=== PATIENT | male | born 1965 | race Caucasian/White ===

== ENCOUNTER 2025-04-25 01:05 | Day surgery (SDC) | payer OTHER, SELFPAY ==
--- NOTE | 2025-04-18 10:23 | SUR.PREOP ---
[facility] has started construction of its new state of the art ER which will open Spring 2026. With this, we anticipate parking may be a challenge for some our surgical patients and families. Parking spaces are limited but are available for all Surgical, obstetrics, and ER patients sharing this lot. If you arrive and find you are having a hard time finding a parking space, please note that we understand the challenges, please drive around the hospital and park near Hospital Entrance 1. When you enter this entrance, you can ask a volunteer to direct or take you back to the surgical waiting area to check in. We appreciate everyone?s understanding of these expected challenges while we build for your future. Report to the Outpatient Waiting Room, entrance under the green pavilion located off [address], at time _12PM___ on date __04/25/25___. Planned Procedure Time: __2PM__.? Time changes happen often and if your time is changed the preop area will call you the afternoon before. - You and your visitor will be asked to self-screen and do not enter if you have any COVID symptoms. Please call surgeon if you need to reschedule. - A mask is optional within the hospital at this time. Patients may have clear liquids (water, carbonated beverages, clear teas, apple juice) until 3 hours prior to surgery with a maximum of 20 ounces. - No food from midnight until time of surgery and no smoking, or chewing tobacco (or any form of nicotine). No chewing gum, candy or mints. Take only the following medications with a SIP of water on the morning of surgery: _carvedilol, (vicodin if needed) DO NOT STOP ANY OF YOUR OTHER PRESCRIPTION MEDICATIONS PRIOR TO SURGERY EXCEPT THE FOLLOWING Hold all vitamins and supplements for 3 days per anesthesiologist. Medications to discontinue per physician:___Advised to follow up with surgeon regarding Plavix and ASA d/t heart history. Date to take last dose:_follow Dr. Sparks's instructions..____ Please no make-up, nail khmer, hairspray, perfume, deodorant, or body powder the day of surgery.? No jewelry (including any body piercings) or valuables the day of surgery, leave them at home.? Please take a shower or bath the night before, or the morning of, surgery with an antibacterial soap.? Wear comfortable, loose fitting clothing.? - Jewelry must be removed prior to entering the operating room.? Rings and piercings that are not removed may be cut off. - The hospital will not accept responsibility for valuables.? - Please leave all valuables, including medications, at home the day of surgery. If you are going home after surgery, a licensed m48/m60 tank driver must drive you home.? - NO public transportation without another adult if you receive anesthesia. - We recommend that an adult stay with you for 24 hours following discharge. - We also recommend that you do not drive, make important decision, drink alcoholic beverages, or take any drugs that were not prescribed by your health care provider for at least 24 hours after your discharge time.. Follow any additional instructions given to you from your surgeon. Telephone instructions given to __Kim/wife___and asked if any additional questions and then verbalized understanding. Patient advised to call surgeon office or pre surgery nurse liaison [phone] if any additional questions.
[2025-04-18 10:38] VITALS: BMI 39.5
[2025-04-25] VITALS (7 sets, daily range): BP systolic 118–155; BP diastolic 62–106; PULSE 60–74; RESP 10–18; TEMP 36.1–36.2; O2SAT 94–100; BMI 39.8
--- OUTSIDE RECORDS SUMMARY | 2025-04-25 01:10 | XMS_ITS | Encounter Summary ---
Author Organization [facility] Healthcare Address [address] [place] [address] Care Team Providers Care Melter Assistant Name Role Phone Ovidio Westfall MD Primary Care Provider [phone] Encounter Details Date Type Department Care Team (Late st Contact Info) Description 10/01/2024 [facility] Post Discharge Follow up phone call [address] [address] [place] Social History Tobacco Use Types Packs/Day Years Used Date Smoking Tobacco: Every Day AUDIT-C Answer Date Recorded Q1: How often do you have a drink containing alcohol? Never 09/24/2024 Q2: How many drinks containi ng alcohol do you have on a typical day when you are drinking? Patient does not drink Q3: How often do you have si x or more drinks on one occasion? Never 09/24/2024 Personal Safety Answer Date Recorded Have you ever been in or are you currently in a harmful physical or emotional relationship or is someone making you feel afraid or unsafe? Denies 09/24/2024 Sex and Gender Information Value Date Recorded Sex Assigned at Not on file Legal Sex Male 10:14 AM DANCE CHOREOGRAPHER Gender Identity Not on file Sexual Orientation Not on file documented as of this encounter Plan of Treatment Not on file documented as of this encounter Visit Diagnoses Not on filedocumented in this encounter Care Teams Melter Assistant Relationship Specialty Start Date [place] [id number] [place] [address] [address] [place] [address] PCP - General Internal Medicine 09/23/24 documented as of this encounter
--- OUTSIDE RECORDS SUMMARY | 2025-04-25 01:10 | XMS_ITS | Clinical Summary ---
Author Organization [facility] Address [address] [place] [address] Care Team Providers Care Gas Appliance Servicer Name Role Phone Ovidio Westfall MD Primary Care Provider [phone] Source Comments [facility],non-owned Affiliates and Associated Physician Practices is amultiple site organization consisting of ambulatory clinics and hospital sitesin [place], [place], [place] and [place]. This disclosure is being madepursuant to the Care Everywhere program and may not contain all information available regarding this patient. Last updated 18.[facility] Live Shuttle Allergies Active Allergy Reactions Criticality Noted Date Comments Adhesive Sensitivity Urticaria Medium 09/23/2024 Contrast-Iodinated Agents For Ct/Other Rash Medium 10/03/2024 Medications * Be aware that medications may not be up to date on this document. Alwaysverify current medications with the patient. aspirin EC (Ecotrin) 81 MG tablet Take 1 (one) tablet by mouth once daily Active atorvastatin (Lipitor) 40 MG tablet Take 1 (one) tablet by mouth once daily 09/26/2024 Active carvedilol (Coreg) 12.5 MG tablet Take 1 (one) tablet by mouth 2 times daily 10/24/2023 Active clopidogrel (plaVIX) 75 MG tablet Take 1 (one) tablet by mouth once daily 09/25/2024 Active fenofibrate (Tricor) 145 MG tablet Take 1 (one) tablet by mouth once daily 09/26/2024 Active HYDROcodone-acet aminophen ([place]) 10-325 MG tablet Take 1 (one) tablet by mouth every 6 hours as needed 09/04/2024 Active lisinopril (Prinivil; Zestril) 10 MG tablet Take 1 (one) tablet by mouth once daily 09/23/2024 Active spironolactone (Aldactone) 25 MG tablet Take 1 (one) tablet by mouth once daily 10/24/2023 Active testosterone cypionate (Depo-Testostero ne) 100 MG/ML injection Inject 100 (one hundred) mg into muscle every 14 days Active Active Problems Problem Noted Date Diagnosed Date Knee pain, left 10/21/2024 Carotid stenosis, left 10/10/2024 Angina at rest 09/24/2024 Hypertensive disorder 09/29/2016 Smoker 04/08/2015 Hyperlipidemia 04/08/2015 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 Coronary arteriosclerosis 04/08/2015 Gastroesophageal reflux disease 04/07/2015 Chronic low back pain 04/07/2015 Carotid artery disease 04/07/2015 CAD in [place] artery 06/05/2014 Social History Tobacco Use Types Packs/Day Years Used Date Smoking Tobacco: Every Day Cigarettes Tobacco Cessation:Ready to Q uit: Not Asked; Counseling Given: Not Answered Alcohol Use Standard Drinks/Week Comments Never 0 (1 standard drink = 0.6 oz pur e alcohol) Overall Financial Resource Strain (CARDIA) Answe r Date Recorded How hard is it for you to pa y for the very basics like food, housing, medical care, and heating? Not hard at all 10/10/2024 [facility] - Occupational Stress Questionnaire Answer Date Recorded Do you feel stress - tense, restless, nervous, or anxious, or unable to sleep at night because your mind is troubled all the time - these days? Not at all 10/10/2024 Hunger Vital Sign Answer Date Recorded Within the past 12 months, y ou worried that your food would run out before you got the money to buy more. Never true 10/11/19 25 Within the past 12 months, t he food you bought just didn't last and you didn't have money to get more. Never true 10/10/2024 PRAPARE - Transportation Answer Date Re corded In the past 12 months, has l ack of transportation kept you from medical appointments or from getting medications? No 09/24 In the past 12 months, has l ack of transportation kept you from meetings, work, or from getting things needed for daily living? No 10/10/2024 Housing Stability Vital Sign Answer [place] e Recorded In the last 12 months, was t here a time when you were not able to pay the mortgage or rent on time? No 10/10/2024 Number of Times Moved in the Last Year Not on fi le 10/10/2024 At any time in the past 12 m [facility], were you homeless or living in a care home (including now)? No 10/10/2024 Sex and Gender Information Value Date Recorded Sex Assigned at Not on file Legal Sex Male 3:10 PM CDT Gender Identity Not on file Sexual Orientation Not on file Last Filed Vital Signs Vital Sign Reading Time Taken Comments Blood Pressure 119/81 10/21/2024 12:20 PM CDT Pulse 61 10/21/2024 12:20 PM CDT Temperature 36.5 C (97.7 F) 10/11/2024 11:03 AM CDT Respiratory Rate 13 10/21/2024 12:20 PM CDT Oxygen Saturation 98% 10/21/2024 12:20 PM CDT Inhaled Oxygen Concentration - - Weight 98.9 kg (218 lb) 10/21/2024 12:12 PM CDT Height 172.7 cm (5' 8) 10/21/2024 12:12 PM CDT Body Mass Index 33.15 10/21/2024 12:12 PM CDT Plan of Treatment Health Maintenance Due Date Last Done Comments COLOGUARD (AGES 45-75) - COL ON CA SCREENING 1967 COLON MONITORING 1967 COLONOSCOPY - COLON CA SCREENING 1967 CT COLONOGRAPHY - COLON CA SCREENING 1967 Colorectal Cancer Screening 1967 FIT - COLON CA SCREENING 1967 FLEX SIG - COLON CA SCREENING 1967 HIV SCREENING 1982 HEPATITIS C SCREENING 05/07/1985 DTAP/TDAP/TD VACCINES (1 - Tdap) 1986 HEPATITIS B VACCINE (1 of 3 - 19+ 3-dose series) 1986 PNEUMOCOCCAL VACCINE 50+ (1 of 2 - PCV) 1986 ZOSTER VACCINE (1 of 2) 2017 DEPRESSION SCREENING 06/26/2024 SCREENING FOR DIABETES 10/03/2024 COVID-19 VACCINE (2023-2 5 season) 2025 INFLUENZA VACCINE (#1) 2025 HIB VACCINE Aged Out No longer eligi ble based on patient's age to complete this topic HPV VACCINE Aged Out No longer eligi ble based on patient's age to complete this topic MENINGOCOCCAL (Group B) VACC INE SHARED DECISION-MAKING Aged Out No longer eligibl e based on patient's age to complete this topic MENINGOCOCCAL GROUPS A/C/Y/W VACCINE Aged Out No longer eligible b ased on patient's age to complete this topic Medical Devices Implanted Type Area Child Protective Services Social Worker Device Identifier Shelf Expiration Date Model / Serial / Lot Stent Eprsth Crtd 21mm 8mm Mtl Wlstnt- [id number] Implanted:Qty : 1 on 10/10/2024 by Belen Kahn MD Left: Carotid [employer] [id number] 11/04/2027 [id number] / / [id number] Insurance [employer] Care Teams Gas Appliance Servicer Relationship Specialty [place] [address] [address] [facility] [place] [id number] PCP - General Internal Medicine 10/03/24
--- OUTSIDE RECORDS SUMMARY | 2025-04-25 01:10 | XMS_ITS | Clinical Summary ---
Author Organization [facility] Address [address] [place] [address] Care Team Providers Care Reptile Keeper Name Role Phone Ovidio Westfall MD Primary Care Provider [phone] Allergies Active Allergy Reactions Criticality Noted Date Comments Adhesive Hives Medium 09/23/2024 Iodinated Contrast Media Hives Medium Medications spironolactone (ALDACTONE) 25 mg tablet Take 1 tablet (25 mg total) by mouth daily Active carvedilol (COREG) 12.5 mg tablet Take 1 tablet (12.5 mg total) by mouth 2 (two) times a day with meals Active clopidogrel (PLAVIX) 75 mg tablet Take 1 tablet (75 mg total) by mouth daily Active aspirin 81 mg tablet Take 1 tablet (81 mg total) by mouth daily Active testosterone cypionate (DEPO-TESTOTERONE) 100 mg/mL injection Inject into the muscle as instructed every 14 (fourteen) days. Active lisinopriL (PRINIVIL,ZESTRIL) 10 mg tablet Take 1 tablet (10 mg total) by mouth daily 90 tablet 3 09/24/19 25 026 Active amLODIPine (NORVASC) 5 mg tablet Take 1 tablet (5 mg total) by mouth daily 90 tablet 3 09/24/19 25 026 Active atorvastatin (LIPITOR) 40 mg tablet Take 1 tablet (40 mg total) by mouth daily 09/27/19 25 Active HYDROcodone-acetamin ophen (NORCO) 10-325 mg per tabletIndications:Pa in Take 1 tablet by mouth every 6 (six) hours as needed for pain 09/27/19 25 Active fenofibrate nanocrystallized (TRICOR) 145 mg tablet Take 1 tablet (145 mg total) by mouth daily 09/27/19 25 026 Active Active Problems Problem Noted Date Diagnosed Date Coronary arteriosclerosis in [place] artery 11/08 S/P CABG (coronary artery bypass graft) 11/09/19 25 Angina at rest 09/24/2024 Carotid artery disease 09/19/2024 Primary hypertension 04/28/2023 CAD in [place] artery 06/05/2014 Resolved Problems Problem Noted Date Diagnosed Date Resolved Date S/P CABG (coronary artery bypass graft) 04/30/2021 09/25/2024 Status post coronary artery stent placement 04/30/2021 09/25/2024 Post percutaneous translumin al coronary angioplasty 01/07/2014 09/25/2024 Overview (09/29/2016): STATUS-POST PTCA Tobacco dependence syndrome 11/09/2013 09/25/2024 Overview (09/28/2016): TOBACCO USE DISORDER Hyperlipidemia 11/09/2013 09/25/2024 Overview (09/29/2016): HYPERLIPIDEMIA NEC/NOS Coronary arteriosclerosis in [place] artery 11/09/2013 09/25/2024 Overview (09/30/2016): CRNRY ATHRSCL NATVE VSSL Surgical History Surgery Date Site/Laterality Comments CARDIAC CATHETERIZATION 09/25/2024 N/A Procedure: SELECTIVE CATH INTERNAL CAROTID ARTERY, UNILATERAL [id number]; Surgeon: Aly Aguilera MD; Location: CARDIAC MANAGER OF CLINICAL; Service: Cardiovascular; Laterality: N/A; Medical devices from this surgery are in the Medical Devices section. CARDIAC CATHETERIZATION 09/25/2024 N/A Procedure: LEFT HEART CATHETERIZATION WITH CORONARY ANGIOGRAPHY AND WITH OR WITHOUT LEFT VENTRICULOGRAM [id number]; Surgeon: Aly Aguilera MD; Location: CARDIAC MANAGER OF CLINICAL; Service: Cardiovascular; Laterality: N/A; Medical devices from this surgery are in the Medical Devices section. Medical History Medical History Date Comments GERD (gastroesophageal reflux disease) Dysphagia occasional solid s liquids and pills Sleep apnea Hypertension Family History Medical History Relation Name Comments Coronary artery disease Father Fami ly history of coronary artery disease - (Added by TW Conv) Relation Name Status Comments Father Social History Tobacco Use Types Packs/Day Years Used Date Smoking Tobacco: Every Day Tobacco Cessation:Ready to Q uit: Not Asked; Counseling Given: Not Answered AUDIT-C Answer Date Recorded Q1: How often [...] on file Legal Sex Male 10:14 AM DIFFERENTIAL SPECIALIST Gender Identity Not on file Sexual Orientation Not on file Obstetrics History Last Filed Vital Signs Vital Sign Reading Time Taken Comments Blood Pressure 136/86 11/08/2024 9:31 AM CDT Pulse 67 11/08/2024 9:31 AM CDT Temperature 36.4 C (97.6 F) 09/26/2024 11:04 AM CDT Respiratory Rate 16 11/08/2024 9:31 AM CDT Oxygen Saturation 92% 11/08/2024 9:31 AM CDT Inhaled Oxygen Concentration - - Weight 103.4 kg (228 lb) 11/08/2024 9:31 AM CDT Height 172.7 cm (5' 7.99) 09/24/2024 10:35 PM C DT Body Mass Index 34.68 09/24/2024 10:35 PM CDT Plan of Treatment Health Maintenance Due Date Last Done Comments Colon Cancer Screening-Colonoscopy 1967 Depression Screening 1967 Hepatitis C Screening 1967 Hepatitis B Screening 1985 Regular Well Visit/Exam 18-64 1985 Pneumococcal vaccine <65 (1 of 2 - PCV) 1986 Zoster Vaccine (1 of 2) 2017 Prostate Cancer Screening-PSA 08/04/2024, 01/12/2022, 04/26/2021 Influenza Vaccine (#1) 2025 9, 04/20/2018, 04/18/2018, Additional history exists DTaP/Tdap/Td Vaccine (2 - Td or Tdap) 04/02/2029 04/02/2019 Medical Devices Implanted Type Area Investor Relations Director Device Identifier Shelf Expiration Date Model / Serial / Lot ISpeak Synergy Xd Monorail 3mm 12mm 144cm Delivery System 1 Access Port [id number] - [id number] Implanted:Qty: 1 on 09/25/2024 by Aly Aguilera MD [facility] [employer] 02/26/2026 [id number] / / [id number] [facility] Angio-Seal Vip 6fr Closere Device [id number] - [id number] Implanted:Qty: 1 on 09/25/2024 by Aly Aguilera MD at [facility] [employer] 03/05/2025 [id number] / / Procedures Procedure Name Priority Date/Time Associated Diagnosis Comments PSA DIAGNOSTIC Routine 08/04/2022 11:53 AM DIFFERENTIAL SPECIALIST from Last 3 Months or Most Recently Relevant to Health Maintenance Results * PSA diagnostic (08/04/2022 11:53 AM DIFFERENTIAL SPECIALIST) PSA-Total 0.49 <=3.90 ng/mL [facility] Blood 08/04/2022 11:5 3 AM DIFFERENTIAL SPECIALIST 08/04/2022 1:06 PM DIFFERENTIAL SPECIALIST us Esteban Pratt MD LAB BLOOD ORDERABLES Final Resul t [facility] Department [place] [address] from Last 3 Months or Most Recently Relevant to Health Maintenance Insurance [employer] Advance Directives For more information, please contact: [phone] * Full Code (Latest Code Status on File) Date Activated Date Inactivated Comments 09/25/2024 7:20 AM 09/26/2024 6:22 PM * Full Code Date Activated Date Inactivated Comments 09/24/2024 8:19 PM 09/25/2024 7:20 AM * Full Code Date Activated Date Inactivated Comments 04/10/2018 11:55 AM 04/10/2018 4:12 PM Care Teams Reptile Keeper Relationship Specialty [place] [address] [address] PCP - General Internal Medicine 09/23/24
--- NOTE | 2025-04-25 10:31 | PM.IMHP ---
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 [facility] Family History Family History (Updated 02/20/14 @ 07:13 by DOCTOR UNKNOWN) Mother Family history of chronic obstructive pulmonary disease Family history of emphysema Father Family history of coronary artery disease Sibling Family history of coronary artery disease Social History Social History Smoking packs per day: 2 Smoking cigarettes per day: 40.0 Years smoked: 44 Smoking pack-years: 88.00 Smoking status: Current every day smoker Alcohol intake: current Living arrangements: with family Spiritual care concerns: No Meds Home Medications and Allergies Home Medications ?Medication ?Instructions ?Recorded ?Confirmed ?Type aspirin 81 mg tablet,delayed 81 mg PO DAILY 04/18/25 04/18/25 History release (Adult Aspirin Regimen) atorvastatin 40 mg tablet 40 mg PO HS 04/18/25 04/18/25 History carvedilol 12.5 mg tablet 12.5 mg PO BID 04/18/25 04/18/25 History clopidogrel 75 mg tablet 75 mg PO DAILY 04/18/25 04/18/25 History esomeprazole magnesium 20 mg 40 mg PO DAILY 04/18/25 04/18/25 History capsule,delayed release (Nexium) fenofibrate nanocrystallized 145 145 mg PO DAILY 04/18/25 04/18/25 History mg tablet hydralazine 10 mg tablet 10 mg PO TID PRN hypertension 04/18/25 04/18/25 History hydrocodone 10 mg-acetaminophen 1 tablet PO TID PRN pain 04/18/25 04/18/25 History 325 mg tablet lisinopril 10 mg tablet 10 mg PO DAILY 04/18/25 04/18/25 History lisinopril 5 mg tablet 5 mg PO DAILY 04/18/25 04/18/25 History spironolactone 25 mg tablet 25 mg PO DAILY 04/18/25 04/18/25 History testosterone cypionate 200 mg/mL 100 mg IM WEEKLY 04/18/25 04/18/25 History intramuscular oil Allergies Allergy/AdvReac Type Severity Reaction Status Date / Time Iodinated Contrast Media Allergy Mild Rash Verified 04/18/25 10:29 Exam Narrative: Examination of the patient's right knee shows that he has moderate prepatellar fluid collection as well as significant tenderness to palpation over the medial joint Const: General: cooperative, healthy appearing, comfortable, no acute distress, well developed, alert, awake and Physically active Nutritional Appearance: well nourished Orientation/consciousness: oriented to person, oriented to place and oriented to time Assessment and Plan Assessment and plan (1) Prepatellar bursitis, right knee: Code(s): M70.41 - Prepatellar bursitis, right knee Status: Acute (2) Tear of medial meniscus of right knee: Code(s): S83.241A - Other tear of medial meniscus, current injury, right knee, initial encounter Status: Acute Plan 59-year-old male with a right knee medial meniscus tear as well as prepatellar bursitis. Treatment plan is for a right knee arthroscopic partial medial meniscectomy as well as a right knee open prepatellar bursectomy. The risks benefits alternatives and complications were discussed with the patient. The risks include but are not limited to infection persistent swelling within the prepatellar bursa as well as DVT patient agrees to proceed.
--- NOTE | 2025-04-25 10:51 | WPDHPUPDATE1 ---
History and Physical Update Update Date/Time: 04/25/25 10:51 History and Physical has been reviewed, including an updated exam of the patient. There are NO changes in the patient's condition. Risks, benefits, and alternatives have been discussed and questions answered. Patient agrees to proceed with procedure. 59-year-old male with a right knee medial meniscus tear as well as prepatellar bursitis. Treatment plan is for a right knee arthroscopic partial medial meniscectomy as well as a right knee open prepatellar bursectomy. The risks benefits alternatives and complications were discussed with the patient. The risks include but are not limited to infection persistent swelling within the prepatellar bursa as well as DVT patient agrees to proceed.
--- NOTE | 2025-04-25 11:58 | WPDANESEPPF ---
Anes - Initial Pre Proc Eval Procedure: Operation Date: 04/25/25 12:30 Proposed Procedures p Right Knee Arthroscopy with Right Patellar Bursectomy - Kai Sparks MD Date/Time: 04/25/25 11:58 Surgeon: Kai Sparks MD Pre Op Diagnosis: Right Knee Pain Patient Data Age: 59 Gender: M Height: 1.63 m Weight: 105.2 kg Last Vital Signs Temp 36.2 C L 04/25/25 10:12 Pulse 70 04/25/25 10:12 Resp 16 04/25/25 10:12 BP 139/79 04/25/25 11:27 Pulse Ox 96 04/25/25 10:12 O2 Del Method Room Air 04/25/25 10:12 Allergies Allergy/AdvReac Type Severity Reaction Status Date / Time Iodinated Contrast Media Allergy Mild Rash Verified 04/18/25 10:29 Home Medications ?Medication ?Instructions ?Recorded ?Confirmed ?Type aspirin 81 mg tablet,delayed 81 mg PO DAILY 04/18/25 04/18/25 History release (Adult Aspirin Regimen) atorvastatin 40 mg tablet 40 mg PO HS 04/18/25 04/18/25 History carvedilol 12.5 mg tablet 12.5 mg PO BID 04/18/25 04/18/25 History clopidogrel 75 mg tablet 75 mg PO DAILY 04/18/25 04/18/25 History esomeprazole magnesium 20 mg 40 mg PO DAILY 04/18/25 04/18/25 History capsule,delayed release (Nexium) fenofibrate nanocrystallized 145 145 mg PO DAILY 04/18/25 04/18/25 History mg tablet hydralazine 10 mg tablet 10 mg PO TID PRN hypertension 04/18/25 04/18/25 History hydrocodone 10 mg-acetaminophen 1 tablet PO TID PRN pain 04/18/25 04/18/25 History 325 mg tablet lisinopril 10 mg tablet 10 mg PO DAILY 04/18/25 04/18/25 History lisinopril 5 mg tablet 5 mg PO DAILY 04/18/25 04/18/25 History spironolactone 25 mg tablet 25 mg PO DAILY 04/18/25 04/18/25 History testosterone cypionate 200 mg/mL 100 mg IM WEEKLY 04/18/25 04/18/25 History intramuscular oil Laboratory Tests 04/25/25 10:50 C-Reactive Protein Pending Patient hx anesthesia problems: none Family hx anesthesia problems: none Results Review: All pre-operative results and documents have been reviewed as part of the pre-operative evaluation. FORMERLY [facility], 1928–1983 Family History Family History Mother Family history of chronic obstructive pulmonary disease Family history of emphysema Father Family history of coronary artery disease Sibling Family history of coronary artery disease Social History Social History Smoking packs per day: 2 Smoking cigarettes per day: 40.0 Years smoked: 44 Smoking pack-years: 88.00 Smoking status: Current every day smoker Alcohol intake: current Living arrangements: with family Spiritual care concerns: No Anes - Eval Final PreProcedure Day of Procedure 04/25/25 11:58 Patient weight: morbidly obese Heart: regular rate and rhythm Lungs: decreased breath sounds Airway: Mallampati scale class II Neurological: alert and oriented Last oral intake: >/= 8 hours ASA classification: III Emergent: no Anesthetic plan: proceed Anesthesia type and monitoring: general LMA and standard monitoring Results Review: All pre-operative results and documents have been reviewed as part of the pre-operative evaluation. Informed Consent: The patient's anesthetic plan and its attendant risks and benefits were discussed with the patient/family/POA. Questions were solicited and answers provided to the satisfaction of the patient/family/POA.
[2025-04-25] MEDS: ceFAZolin 2 GM in SODIUM CHLORIDE 0.9% IV 50 ML 100 ML IVPB (12:01)
[2025-04-25 12:33] LABS: CRP 1.1 mg/dL (<1.0)
[2025-04-25] MEDS: LIDO 1%/EPINEPHRINE 1:100,000 50 ML VIAL (12:48)
[2025-04-25] MEDS: LACTATED RINGERS 1,000 ML 30 ML IV CONT (13:23)
--- NOTE | 2025-04-25 13:31 | W.PM.PROC2 ---
Procedure Note - Detailed Date of Procedure 04/25/25 Pre-op Diagnosis Right knee medial meniscus tear and Osteochondral defect of medial femoral condyle Right knee pre-patellar bursitis Post-op Diagnosis Other (Right Knee Osteochondral Defect 1x1cm weight bearing surface Medial femoral condyle. 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 He frequently has to kneel on the right knee in order to provide maintenance orders. He presented with right knee pain with a nonseptic prepatellar bursitis. MRI of the right knee also showed possible medial meniscus tear with the osteochondral defect also noted on the MRI. Findings Right knee osteochondral defect medial femoral condyle 1 x 1 cm unstable cartilage flap Right knee prepatellar bursitis Description of Procedure After interviewing the patient in the holding area and marking the correct extremity and answering all questions with his present the patient was then brought back to the operating room placed in supine position at which time he underwent general anesthesia. The right lower extremity was then prepped and draped in standard sterile fashion. The left lower extremity was placed in an well-padded leg guerin. A time-out was performed to verify correct patient correct site of surgery correct procedure to verify that indeed antibiotics intravenous was administered within 1 hour of the incision time. Standard 3 arthroscopic portals were made the 1st entered into the patellofemoral joint space which time I had noted proceed articular cartilage over the patellofemoral joint including the patella as well as the trochlea. I then entered into the medial compartment at which time I immediately noted a osteochondral flap with a full-thickness osteochondral defect measuring about 1 x 1 cm over the weight-bearing surface of the medial femoral condyle. The patient had an intact ACL. He had an intact lateral meniscus intact medial meniscus as well as no evidence of cartilaginous pathology in the lateral compartment. I then proceeded to perform a chondroplasty with an arthroscopic shaver to remove the unstable cartilaginous flap. We then proceeded to use a chondral pick in order to create a bleeding bony bed over the distal medial femoral condyle. This portion of procedure was considered the fracture chondroplasty. I then irrigated copiously removed all arthroscopic instrumentation and then turned my attention to the prepatellar bursectomy part of this procedure. A longitudinal incision was made over the patella approximately 6 in in length dissection carried down I easily identified exuberant prepatellar tissue with debris. I dissected proximally medially and laterally as well as distally to completely remove the prepatellar bursa along with all debris. This was performed with a sharp dissection as well as with Bovie dissection. The prepatellar bursa was then completely excised and sent to pathology. She with normal saline and then I obtained hemostasis. I then proceeded to close the dermal layer using 2-0 Vicryl suture the dermal fashion interrupted and closed the skin using gerri. The right leg with bandaged and a sterile fashion the patient was transferred to the recovery room in stable condition. The patient along with his was instructed to take 81 mg of aspirin twice a day in addition to his prescription medication to help prevent DVT. He is to keep his dressings dry until I see him back my office. Estimated Blood Loss 20 Tourniquet Time Total Tourniquet Time: 0 Drains No Packing No Pathology Yes Complications None Condition Stable Disposition PACU
--- NOTE | 2025-04-25 13:59 | S_PTH ---
PATIENT: Valeriy Verduzco LOC: [facility] [place] U#:[id number] AGE/SX: 59/M ROOM: RE04/25/[address]: Kai Sparks MD : [id number] BED: DIS: 04/25/2025 SPEC #: [id number] RECD: 04/28/25 08:01 STATUS: HITESH REQ #: [id number] ANTONY: 04/25/25 13:[address]: Kai Sparks DEPT: [facility] Surgical RECD BY: Tomasa Ricardo ENTERED: 04/28/25 08:02 SP TYPE: Surgical OTHR DR: Ovidio WestfallMD Tissues: A - Soft Tissue Procedures: Hematoxylin and Eosin Stain Gross and Microscopic Level 3
== END 2025-04-25 15:30 | disposition home or self-care (01) ==
PROVIDERS: PCP Internal Medicine; Visit Provider Orthopaedic Surgery
PROC: (CPT 29870; principal; 2025-04-25 12:30)
DX: M23.8X1 Other internal derangements of right knee (principal); M70.861 Other soft tissue disorders related to use, overuse and pressure, right lower leg; F17.210 Nicotine dependence, cigarettes, uncomplicated; E66.01 Morbid (severe) obesity due to excess calories; Z68.39 Body mass index [BMI] 39.0-39.9, adult
CPT/HCPCS: 27340; 36415; 86140; 88304; J0690; J2004; J2250; J2270; J2704; J3301; J7120